=== PATIENT | female | born 1965 | race African-American/Black ===

== ENCOUNTER 2018-04-29 16:44 | Emergency (ER) | payer MEDICAID ==
[~2018-04-29] VITALS: Ht 162.6 cm; Wt 85.0 kg
[2018-04-29] MEDS ORDERED: CLINDAMYCIN HCL 150MG CAPSULE PO SCH (18:30)
[2018-04-29] MEDS ORDERED: IBUPROFEN 600MG TABLET PO ONE (19:00)
[2018-04-29 20:30] VITALS: BP 175/98
== END 2018-04-29 20:30 | disposition home or self-care (01) ==
LOC: ER 16:44
DX: L03.211 Cellulitis of face (principal); K02.9 Dental caries, unspecified; K08.409 Partial loss of teeth, unspecified cause, unspecified class; I10 Essential (primary) hypertension; M54.9 Dorsalgia, unspecified; G89.29 Other chronic pain
CPT/HCPCS: 99283